=== PATIENT | male | born 1990 | race Caucasian/White ===

== ENCOUNTER 2020-02-02 08:49 | Outpatient (CLI) | payer OTHER, SELFPAY ==
--- NOTE | ~2020-02-02 | MR_ITS ---
EXAMINATION: MR IAC wo/w con DATE: 02/02/2020 10:03 INDICATION: Asymmetrical sensorineural hearing loss TECHNIQUE: Magnetic resonance imaging (MRI) of the brain and brainstem was performed without intraven ous contrast. Sequences included sagittal and axial T1-weighted FSE, axial diffusion-weighted FS EPI, axial T2*-weighted GRE, axial T2-weighted FLAIR Propeller, axial T2-weighted Propeller, small field- of-view coronal FIESTA, small jkryj-en-lwdz coronal T1-weighted FSE, and small hhhhk-of-lwrk axial T1 -weighted SPGR. Postcontrast sequences included axial T1-weighted FSE, small fnbia-ez-hiaz coronal T1 -weighted FSE, and small kwcda-hx-spak axial T1-weighted SPGR. Apparent diffusion coefficient (ADC) m aps were created. COMPARISON: None. FINDINGS: There are no areas of restricted diffusion to suggest acute infarction. No intracranial hemorrhage. T here is a large intra-axial cystic mass with irregular thickened enhancing rim in the right frontal l obe which measures 6.7 x 6.5 x 5.8 cm. This exerts significant local mass effect with effacement of t he adjacent cysts sulci, architectural distortion in decreased size of the right lateral ventricle wh ich results in 1.5 cm right to left midline shift at the level of the inferior falx. No restricted di ffusion within the central cystic portion of the mass. There is no appreciable surrounding cerebral e cain. No other enhancing brain lesions identified. There are no intraparenchymal signal abnormalities seen on the other pulse sequences. There are no abnormal extra-axial fluid collections. Flow voids a re seen in the cerebral arteries on the T2-weighted sequences consistent with their expected patency. The orbits are normal. Mild mucosal thickening in the right frontal and bilateral ethmoid sinuses. M ore prominent mucosal thickening the bilateral maxillary sinuses with mucous retention cyst at the fl oor of the right maxillary sinus and with high T1 signal intensity proteinaceous mucus filling the le ft maxillary sinus. Mastoid air cells and middle ear cavities are clear. Normal seventh/eighth crania l nerve complexes. No cerebellopontine angles masses. The cochlea and labyrinth appear normal on bot h the left and right. IMPRESSION: 1. 6.7 cm centrally cystic intra-axial mass in the right frontal lobe consistent with likely primary brain cancer. This results in significant mass effect including 1.5 cm right to left midline shift. R ecommend neurosurgical consultation. 2. Sinus disease. Reviewed, dictated and finalized at location A. IMPRESSION: 1. 6.7 cm centrally cystic intra-axial mass in the right frontal lobe consisten t with likely primary brain cancer. This results in significant mass effect inc luding 1.5 cm right to left midline shift. Recommend neurosurgical consultation . 2. Sinus disease.
[2020-02-02 09:15] LABS: Estimated Glomerular Filt Rate > 60
== END 2020-02-02 08:50 | disposition home or self-care (01) ==
LOC: ANHIMG 08:52
PROVIDERS: Visit Provider Otolaryngology
DX: H90.5 Unspecified sensorineural hearing loss (principal); G93.9 Disorder of brain, unspecified
CPT/HCPCS: 36415; 70553; A9577